=== PATIENT | male | born 1960 | race Caucasian/White ===

== ENCOUNTER 2017-07-07 14:18 | Outpatient (CLI) | payer OTHER ==
[~2017-07-07] VITALS: Ht 170.2 cm; Wt 57.1 kg
[2017-07-07 14:28] VITALS: BP 133/61; PULSE 90; RESP 18; Ht 170.2 cm; Wt 57.1 kg
[2017-07-07] MEDS ORDERED: CETI5TAB20 PO (14:39)
[2017-07-07] MEDS ORDERED: CLON2TAB3 PO (14:39)
[2017-07-07] MEDS ORDERED: FLUT9.9S NASAL (14:39)
[2017-07-07] MEDS ORDERED: OLOP2.5D BOTH EYES (14:39)
[2017-07-07] MEDS ORDERED: LACT10SO5 PO (14:39)
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
== END 2017-07-07 15:27 | disposition home or self-care (01) ==
LOC: HPC 14:18
PROVIDERS: ATTEND Transplant Surgery
DX: K42.9 Umbilical hernia without obstruction or gangrene (principal); K74.60 Unspecified cirrhosis of liver; B19.20 Unspecified viral hepatitis C without hepatic coma
CPT/HCPCS: G0463

== ENCOUNTER 2017-08-02 10:00 | Outpatient (CLI) | END 2017-08-02 17:00 | disposition home or self-care (01) ==